=== PATIENT | male | born 1960 | race Caucasian/White ===

== ENCOUNTER → 2021-08-30 | Outpatient (CLI) | payer MEDICARE, OTHER, SELFPAY ==
--- NOTE | 2021-08-30 06:56 | MRI_ITS ---
STUDY: MRI CERVICAL SPINE WITHOUT CONTRAST REASON FOR EXAM: Male, 61 years old. neck pain right cervical radiculopathy -- TECHNIQUE: Standardized fat and water weighted pulse sequences were obtained in the sagittal and axial planes. COMPARISON: None FINDINGS: Normal foramen magnum and brainstem-cervical cord junction. Normal craniovertebral junction. Normal anterior atlantoaxial articulation. Normal odontoid process. Normal cervical lordosis. Normal vertebral bodies and posterior osseous elements. C2-3: Normal endplates. Normal disc height, signal and morphology. Normal central canal and intervertebral neural foramina. C3-4: Normal endplates. Normal disc height, signal and morphology. Normal central canal and intervertebral neural foramina. C4-5: Moderate broad disc osteophyte complex produces moderate spinal stenosis with abutment of the central spinal cord and mild bilateral neural foraminal stenosis. C5-6: Moderate bilateral disc osteophyte complex produces moderate spinal stenosis with effacement of the right hemicord and mild bilateral neural foraminal stenosis. C6-7: Moderate broad disc osteophyte complex bases moderate spinal stenosis with abutment of the central spinal cord and moderate bilateral neural foraminal stenosis. C7-T1: Normal endplates. Normal disc height, signal and morphology. Normal central canal and intervertebral neural foramina. Normal cervical cord. Normal visualized soft tissue structures. MRI/Spine Cervical (Routine) IMPRESSION: Multilevel degenerative changes, as described above. Electronically Signed: Zach Love MD at 17:29 EDT ,
--- NOTE | 2021-08-30 06:59 | RAD_ITS ---
STUDY: X-RAY - ORBITS REASON FOR EXAM: Male, 61 years old. Hx of metal removed from right eye in 1982 TECHNIQUE: 2 AP views view(s) of the orbits were obtained. COMPARISON: None. FINDINGS: Normal bilateral orbits without a metallic orbital foreign body. Normal visualized facial bones. Normal paranasal sinuses. The soft tissue structures are unremarkable. RAD/Orbits for Foreign Body IMPRESSION: No visualized radiopaque foreign bodies overlying the orbits. The study is limited by the visualized metallic dental amalgam. Electronically Signed: Krystle Coulter MD at 7:42 EDT Reading Location ID and State: [facility] / [place] Tel , Service support ,
== END | disposition home or self-care (01) ==
PROVIDERS: PCP General Practice; Referring Provider Psychiatry & Neurology Neurology; Visit Provider Psychiatry & Neurology Neurology
DX: M54.12 Radiculopathy, cervical region (principal); M54.2 Cervicalgia
CPT/HCPCS: 70030; 72141

== ENCOUNTER → 2022-02-05 | Outpatient (CLI) | payer MEDICARE, OTHER, SELFPAY ==
--- NOTE | 2022-02-05 16:10 | NEURO ---
NCS and/or EMG Patient Report Ordering Doctor: Tom Cantu DATE OF SERVICE: 02/05/22 Adrian presents for electrodiagnostic testing of the upper limbs. He reports neck pain with intermittent radiation into the upper limbs. He has numbness and tingling in the right hand. Electrodiagnostic findings: Median motor nerve demonstrates normal distal latency, amplitude and conduction velocity bilaterally. Normal right ulnar motor response, including conduction across the elbow. Normal left ulnar motor response, including conduction across the elbow. Sensory responses are within normal limits. On needle EMG, 1+ fibrillations noted in the right pronator teres, right triceps and right lower cervical paraspinals. Motor unit action potentials are of normal amplitude and duration without polyphasic activity. Electrodiagnostic impression: This is an abnormal study in the upper limbs. 1. Electrodiagnostic findings demonstrate acute right-sided C7 radiculopathy. 2. No electrodiagnostic evidence is noted for peripheral neuropathy, including carpal tunnel or cubital tunnel syndrome.
== END | disposition home or self-care (01) ==
LOC: PSN 14:31
PROVIDERS: PCP General Practice; Referring Provider Psychiatry & Neurology Neurology; Visit Provider Psychiatry & Neurology Neurology
DX: M54.12 Radiculopathy, cervical region (principal); G56.23 Lesion of ulnar nerve, bilateral upper limbs
CPT/HCPCS: 95886; 95913

== ENCOUNTER → 2022-07-30 | Outpatient (CLI) | payer MEDICARE, OTHER, SELFPAY ==
[2022-07-30 11:03] LABS: Vitamin B12 652 pg/mL (211-911)
[2022-07-30 11:47] LABS: Hemoglobin A1c 5.9 % (3.8-5.6)
[2022-08-01 22:06] LABS: Free Kappa Light Chains 24.2 mg/L (3.3-19.4); Vitamin B1, Thiamine 116.3 nmol/L (66.5-200.0)
== END | disposition home or self-care (01) ==
PROVIDERS: PCP General Practice; Referring Provider Psychiatry & Neurology Neurology; Visit Provider Psychiatry & Neurology Neurology
DX: G62.9 Polyneuropathy, unspecified (principal); R73.9 Hyperglycemia, unspecified
CPT/HCPCS: 36415; 82607; 82746; 83036; 83883; 84425

== ENCOUNTER → 2022-10-21 | Outpatient (CLI) | payer MEDICARE, OTHER, SELFPAY ==
--- NOTE | 2022-10-21 07:15 | MRI_ITS ---
STUDY: MRI CERVICAL SPINE WITHOUT CONTRAST REASON FOR EXAM: Male, 62 years old. SPONDYLOSIS, C/O BILATERAL ARM PAIN TECHNIQUE: Standardized fat and water weighted pulse sequences were obtained in the sagittal and axial planes. COMPARISON: MRI of the cervical spine dated August 30, 2021 FINDINGS: Normal foramen magnum and brainstem-cervical cord junction. Normal craniovertebral junction. Normal anterior atlantoaxial articulation. Normal odontoid process. There is straightening of the normal cervical lordosis. Normal vertebral bodies and posterior osseous elements. C2-3: Normal endplates. Diffuse disc desiccation. Normal disc height and morphology. Normal central canal and intervertebral neural foramina. C3-4: Normal endplates. Diffuse disc desiccation with minimal posterior disc space narrowing and annular bulging. Normal central canal and right neural foramen. Mild to moderate left foraminal stenosis with nerve root impingement due to uncovertebral facet joint hypertrophy. C4-5: Normal endplates. Diffuse disc desiccation with mild to moderate disc space narrowing and diffuse disc bulging contributing to mild central canal stenosis with slight mass effect on anterior aspect of the cord. Moderate left foraminal stenosis with nerve root compression due to combined uncovertebral and facet joint hypertrophy. Normal right neural foramen. C5-6: Normal endplates. Diffuse disc desiccation with mild to moderate disc space narrowing and diffuse disc bulging eccentric to the right, with a superimposed right paracentral disc protrusion causing compression right anterior aspect of the cord and contributing to mild to moderate central canal stenosis. Severe left foraminal stenosis with nerve root compression due to uncovertebral hypertrophy. Normal right neural foramen. C6-7: Moderate disc space narrowing with diffuse disc desiccation and diffuse disc bulging causing compression across the anterior aspect of the cord and moderate central canal stenosis. Moderate to severe bilateral foraminal stenosis with nerve root compression secondary to uncovertebral hypertrophy. C7-T1: Normal endplates. Normal disc height, signal and morphology. Normal central canal and intervertebral neural foramina. Normal cervical cord. There is no demonstrated cervical cord syrinx cavity. Normal visualized soft tissue structures. MRI/Spine Cervical (Routine) IMPRESSION: 1. Multilevel degenerative changes, as described above. No significant interval change. 2. Mild to moderate central canal stenosis with compression on anterior aspect of the cord from C4-C5 down to C6-C7 3. Moderate to severe foraminal stenosis with nerve root compression as described above from C4-C5 to C6-C7. Electronically Signed: Rojas Larkin MD at 10:11 EDT ,
== END | disposition home or self-care (01) ==
LOC: MRI 07:10
PROVIDERS: PCP General Practice; Referring Provider Nurse Practitioner Acute Care; Visit Provider Nurse Practitioner Acute Care
DX: M47.812 Spondylosis without myelopathy or radiculopathy, cervical region (principal); M50.30 Other cervical disc degeneration, unspecified cervical region; M48.02 Spinal stenosis, cervical region
CPT/HCPCS: 72141

== ENCOUNTER 2022-12-08 20:04 | Emergency (ER) | payer MEDICARE, OTHER, SELFPAY ==
[2022-12-08 20:06] VITALS: BP 130/96; PULSE 111; RESP 18; TEMP 37.3; O2SAT 96; BMI 28.6
[2022-12-08 20:09] VITALS: BP 130/96; PULSE 111; RESP 18; TEMP 37.3; O2SAT 96
--- NOTE | 2022-12-08 20:20 | EDS_ITS ---
HPI History of Present Illness Chief Complaint: Fever Narrative Narrative: 62-year-old male had cervical fusion with anterior approach by Dr. Barry at the [facility] 1 week ago. He presents with fever, chills, body ache, rhinorrhea nasal congestion, and cough since yesterday. He states yesterday he started having fever and took Tylenol and used cold pack to bring his fever down. However, when he awoke this morning, he started having other upper respiratory infection type symptoms. Has had a cough, nasal congestion and runny nose, and multiple myalgias and arthralgias. His fever returned as well. He complains of urinary frequency as well. He is not diabetic. He presents because of upper respiratory infection type symptoms that he has had since yesterday. He denies any increased neck pain or drainage from his wound. No redness. [facility] Medical History Arthritis Bradycardia Cardiac arrhythmia, unspecified Cervicalgia Chronic bronchitis Chronic low back pain Coccydynia GERD (gastroesophageal reflux disease) History of posttraumatic stress disorder (PTSD) Hyperlipidemia, unspecified Insomnia, unspecified Irregular heart beats Irritable bowel syndrome (IBS) Migraines Neuropathy Other psychoactive substance abuse, in remission Palpitations Pneumonia Restless legs syndrome Shortness of breath Tinea versicolor Urticaria, unspecified Home Medications sertraline 100 mg tablet (Zoloft) 200 mg PO DAILY 08/19/21 [History Last Taken Unknown] zolpidem 10 mg tablet (Ambien) 10 mg PO QHS PRN sleep 08/19/21 [History Last Taken Unknown] cholecalciferol (vitamin D3) 50 mcg (2,000 unit) capsule 50 mcg PO DAILY #30 caps 04/01/22 [Rx Last Taken Unknown] omeprazole 20 mg capsule,delayed release 20 mg PO DAILY #30 caps 07/30/22 [Rx Last Taken Unknown] gabapentin 300 mg capsule 300 mg PO BID 12/08/22 [History Last Taken Unknown] oxycodone 5 mg tablet 5 mg PO Q6H PRN PRN pain 12/08/22 [History Last Taken Unknown] Allergy/AdvReac Type Severity Reaction Status Date / Time bupropion [From Wellbutrin] Allergy Severe Anaphylaxis Verified 12/08/22 20:13 Family History Mother Cardiac disorder Diabetes Father Malignant neoplasm of prostate Surgical History History of elbow surgery History of foot surgery History of knee surgery History of lobectomy of lung History of shoulder surgery History of tonsillectomy Social History Smoking Status: Former smoker Tobacco: How many years used: 30 second hand exposure: Yes details: occasionally substance use type: former substance user and painkillers what type of physical activity do you participate in: none and other details: 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 HEENT: No sore throat. No neck pain. No loss of vision. No rhinorrhea. Appropriate neck pain status post surgery. Cardiovascular: No chest pain. No palpitations. No pedal edema. Respiratory: Positive cough, no shortness of breath. Abdominal: No abdominal pain. No nausea. No vomiting. Genitourinary: No dysuria. No hematuria. Urinary frequency. Musculoskeletal: Multiple arthralgias and myalgias. Neurologic: No headaches. No dizziness. No lightheadedness. Skin: No rash. No change in color. Psychiatric: No depression. No anxiety. EXAM Physical Exam Narrative Exam Narrative: Afebrile. Vital signs noted. Nontoxic-appearing. HEENT: Normocephalic. Atraumatic. PERRL, EOMI. Neck soft and supple. No point tenderness or step off. Positive soft neck collar. Cardiovascular: Positive tachycardia no murmurs, rubs, or gallops appreciated. Respiratory: No tachypnea. Lungs clear to auscultation bilaterally. Gastrointestinal: Abdomen soft, nontender, with normoactive bowel sounds. No rebound or guarding. Neurological: Awake. Alert. Nonfocal, nonlateralizing. Skin: No rash. Normal color. No pallor. Incision on anterior neck closed with Steri-Strips, clean, dry, and intact without erythema or fluctuance. Musculoskeletal: No pedal edema. Full range of motion extremities. Const Vital Signs: 12/08/22 20:06 12/08/22 20:09 12/08/22 20:37 Temperature 99.1 F 99.1 F Temperature Source Temporal Temporal Pulse Rate 111 H 111 H Respiratory Rate 18 18 Respiratory Effort Normal Non-Labored Respiratory Pattern Normal Blood Pressure 130/96 H 130/96 H Blood Pressure Mean 107 107 Pulse Ox 96 96 Oxygen Delivery Method Room Air Room Air MDM MDM MDM Narrative Medical decision making narrative: Given the patient's fever and upper respiratory infection type symptoms, concern would be for COVID and influenza. Also in the differential diagnosis is bronchitis versus pneumonia. He was a former smoker and quit smoking in April of this year. He may have underlying COPD as well. Given the urinary frequency concern would be for infection causing his fever as well. I have low suspicion for wound infection or abscess of the neck as he has not had increased pain. I reviewed his laboratory work and he has normal white count of 7.9, platelet count slightly low at 124 which I think is nonspecific, hemoglobin normal at 16.3, sodium slightly low 134 with potassium 3.9. Glucose is elevated at 144 but he has a normal anion gap of 5, I have low concern for diabetic ketoacidosis, as he is not diabetic. I do not feel that the source of his reported fever is from his neck surgery, and I do not feel that CT of the neck is indicated. His respiratory swabs were reviewed and he is negative for RSV and influenza but positive for COVID. As his symptoms are similar to COVID symptoms, treatment be symptomatic. I feel he be discharged safely home with follow-up. He states he had COVID a few years ago as well. He is not hypoxic with his pulse ox 96% on room air. He will be discharged to follow-up. I do not feel that Decadron is indicated. I also do not feel that he requires observation at this time. Return instructions were reviewed. Disposition is discharged home in stable condition. History & Record Review Discussion w/independent historian: Patient and Family Additional record(s) reviewed:: Prior ED visit Lab Data Attestation: I reviewed the patient's lab results. Labs: Laboratory Results - last 24 hr 12/08/22 20:32 WBC 7.9 RBC 5.33 Hgb 16.3 Hct 48.0 MCV 90.1 MCH 30.6 MCHC 34.0 RDW Std Deviation 40.8 RDW Coeff of Anaid 12.5 Plt Count 124 L MPV 9.9 Immature Gran % (Auto) 0.500 Neut % (Auto) 74.5 H Lymph % (Auto) 9.7 L Chase % (Auto) 14.2 H Eos % (Auto) 0.6 Baso % (Auto) 0.5 Absolute Neuts (auto) 5.9 Absolute Lymphs (auto) 0.77 L Nucleated RBC % 0 Sodium 134 L Potassium 3.9 Chloride 102 Carbon Dioxide 27.0 Anion Gap 5 BUN 15 Creatinine 1.05 Estim Creat Clear Calc 82.12 Est GFR (MDRD) Af Amer 92 Est GFR (MDRD) Non-Af 76 BUN/Creatinine Ratio 14.3 Glucose 144 H Calcium 9.2 Radiography Diagnostic Testing: Clinical Impression(s) from Imaging Studies Chest X-Ray 12/08/22 20:50 IMPRESSION: Trace bilateral mid lower lung atelectasis versus scarring. Otherwise no acute cardiopulmonary disease. Electronically Signed: Ariana Robb MD at 21:23 EDT Reading Location ID and State: [address] [place] [address] , Service support , Discharge Plan Triage Chief Complaint: Fever ED Provider: Hosea Hamilton Dx/Rx/DC Orders Clinical Impression: COVID, Status post cervical spinal fusion Instructions: Coronavirus Disease 2019 (COVID-19): Caring for Yourself or Others Prescriptions: No Action zolpidem [Ambien] 10 mg tablet 10 mg PO QHS PRN (Reason: sleep) sertraline [Zoloft] 100 mg tablet 200 mg PO DAILY cholecalciferol (vitamin D3) 50 mcg (2,000 unit) capsule 50 mcg PO DAILY Qty: 30 0RF omeprazole 20 mg capsule,delayed release(DR/EC) 20 mg PO DAILY Qty: 30 5RF oxycodone 5 mg tablet 5 mg PO Q6H PRN PRN (Reason: pain) Patient Comments: TAKE 1 TABLET BY MOUTH EVERY 6 HOURS NEEDED FOR PAIN FOR 7 DAYS gabapentin 300 mg capsule 300 mg PO BID Patient Comments: TAKE 1 CAPSULE BY MOUTH TWICE DAILY for up to 30 days Primary Care Provider: Anabelle Hamilton Referrals: Anabelle Hamilton MD [Primary Care Provider] - Activity Restrictions/Additional Instructions: Tylenol as needed for fever and pain. Drink fluids. Follow-up with your primary care provider. Also follow-up with your spine surgeon as scheduled on the . Disposition Disposition: Home, Self Care
[2022-12-08] MEDS: 0.9% Normal Saline 1,000 ML 1000 ML IV (20:38)
[2022-12-08 20:48] LABS: Absolute Lymphocyte Count 0.77 X10^3/uL (0.83-4.51); Absolute Neutrophil Count 5.9 X10^3/uL (2.0-7.7); Basophil# 0.04 X10^3/uL; Basophil% 0.5 % (0-1); Eosinophil# 0.05 X10^3/uL; Eosinophils% 0.6 % (0-5); Hemoglobin 16.3 g/dL (13.0-16.5); Lymphocyte # 0.77 X10^3/ul (0.83-4.51); Lymphocyte % 9.7 % (19-41); Mean Corpuscular Hgb 30.6 pg (27.0-32.0); Mean Corpuscular Volume 90.1 fL (80-94); Mean Platelet Vol. 9.9 fl (6.2-12.0); Monocyte# 1.12 X10^3/uL; Monocyte% 14.2 % (0-10); NRBC Flagged by Analyzer 0 % (0-5); Neutrophil # 5.89 X10^3/uL (2.7-7.7); Neutrophil % 74.5 % (47-70); Platelet Count 124 K/mm3 (150-450); RBC Distribution Width CV 12.5 % (11.6-14.6); RBC Distribution Width SD 40.8 fl (35.1-43.9); Red Blood Count 5.33 M/mm3 (4.6-6.2); White Blood Count 7.9 K/mm3 (4.4-11.0)
--- NOTE | 2022-12-08 20:50 | RAD_ITS ---
STUDY: X-RAY CHEST REASON FOR EXAM: Male, 62 years old. Cough TECHNIQUE: Single AP portable view of the chest. COMPARISON: None. FINDINGS: Minimal bilateral mid lower lung linear scarring versus atelectasis, otherwise lung yanes are clear. There is no demonstrated pleural abnormality. Normal size heart. Normal mediastinum and orly. Normal visualized pulmonary arteries. Normal visualized aortic arch and descending thoracic aorta. There are diffuse degenerative changes of the visualized thoracic spine. Status post anterior fusion of the lower cervical spine. Normal visualized ribs, clavicles, and shoulders. There is no demonstrated abnormality of the visualized soft tissue structures of the upper abdomen. RAD/Chest 1 View (Portable) IMPRESSION: Trace bilateral mid lower lung atelectasis versus scarring. Otherwise no acute cardiopulmonary disease. Electronically Signed: Ariana Robb MD at 21:23 EDT ,
[2022-12-08 21:07] LABS: Anion Gap 5 (5-15); BUN 15 mg/dL (7-18); BUN/Creat Ratio 14.3 RATIO (10-20); Calcium,Total 9.2 mg/dL (8.5-10.1); Chloride 102 mmol/L (98-107); Creatinine, Serum 1.05 mg/dL (0.70-1.30); EST Glomerular Filtration Rate 76 mL/min (>60); Est Glom Filt Rate - Afr Amer 92 mL/min (>60); Estimated Creatinine Clearance 82.12 ml/min; Glucose 144 mg/dL (74-106); Potassium 3.9 mmol/L (3.5-5.1); Sodium Level 134 mmol/L (136-145)
[2022-12-08 21:53] LABS: Bacteria 0 SEEN /hpf (None Seen); Mucous, Urine 0 SEEN /hpf (<or=2+); Red Blood Cells-Urine 0 SEEN /hpf (0-5); Squamous Epithelial Cells - UA 0 SEEN /hpf (0-5); White Blood Cells 0 SEEN /hpf (0-5)
[2022-12-08 22:02] LABS: Color, Urine Yellow (Yellow); Glucose, Dipstick Normal (Normal); Ketone-Dipstick Negative (Negative); Leukocyte Esterase-Dipstick Negative /ul (Negative); Nitrite-Dipstick Negative (Negative); Occult Blood-Urine Negative /ul (Negative); Protein-Dipstick Negative (Negative); Specific Gravity, Urine 1.015 (1.002-1.030); Urine Bilirubin Dipstick Negative (Negative); Urine Clarity Clear (Clear); Urine Urobilinogen Normal (Normal)
== END 2022-12-08 22:34 | disposition home or self-care (01) ==
PROVIDERS: Emergency Provider Emergency Medicine; PCP General Practice; Visit Provider Emergency Medicine
DX: U07.1 COVID-19 (principal); G89.29 Other chronic pain; Z87.891 Personal history of nicotine dependence; Z79.899 Other long term (current) drug therapy; Z98.1 Arthrodesis status
CPT/HCPCS: 71045; 80048; 81001; 85025; 87428; 87807; 96360; 96361; 99284; J7030; A4216

== ENCOUNTER 2023-03-26 13:30 | Outpatient (RCR) | payer MEDICARE, OTHER, SELFPAY ==
--- NOTE | 2022-12-23 12:03 | HP.PTEVAL ---
Patient's Visit Information Visit Information Visit Information: NAJMA WANG is a 62 year old M referred to Physical Therapy by JERAD TIPTON with a diagnosis of anterior instrumental fusion C4-C7. DOS: 11/11/22. Date of Evaluation: 12/23/22 Physical Therapist: Tonny Headley DPT Visit Plan Frequency: 2x /Week Duration: 6 Weeks Plan: Start with cervical isometrics. Able to wean from brace. Manual to L UT and L levator scapulae region to reduce muscle tension. Start ROM progression at week 3 (week of Jan 05). Subjective Subjective: Pt. is here today for his initial evaluation with diagnosis of cervical myelopathy with subsequent surgery C4-C5, C5-C6, C6-C7 discetomy/decompression and anterior instrumental fusion C4-C7. DOS: 11/11/22. Okay to start isometrics and begin advancing ROM after 3 weeks and wean from brace as tolerated. Pt. reports sleeping well, he uses a sleep aide but has for some time. Pt. was previously having issues down both UEs. Pt. is doing much better with his pain. Pt. is hopeful to get back to golfing and riding his motor cycle, but is aware that this will take some time. Pain Cervical spine: Pain Intensity (Out of 10): 3 Objective Objective: POSTURE: Pt. has okay posture, slight FH, but minimal. Guarded posture noted. PALPATION: pt. has well healing L sided incision. No signs of infection. Pt. has tenderness along B erector spinae, L sided levator scap and UT. NEURO: pt. has normal DTR and normal sensation in BUEs. ROM: CERVICAL SPINE: rotation max/mod loss, SB max loss bilat, flxion mod loss, ext mod/max loss. No over pressure, pt. educated to only move what is comfortable. Pt. has full B shoulder ROM without increase in symptoms. MMT: PT. has no signs of myotomal weakness in either UE. Pt. has 85# environmental compliance officer on L and 98# on R side. Balance/Special Test Scores Oswestry Neck Score: 20 Goals Goal 1:: LTG: Pt. to be I with HEP. Goal Time Frame: 4-6 Weeks Goal 2:: LTG: Pt. to have increased cervical spine ROM to with in normal limits without increase in symptoms. Goal Time Frame: 4-6 Weeks Goal 3:: LTG: pt. to complete all daily activities without increase in cervical spine symptoms. Goal Time Frame: 6-8 Weeks Goal 4:: LTG: Pt. to be educated in prophalaxis activities including proper body mechanics. Goal Time Frame: 6-8 Weeks Rehabilitation Potential Physical Therapy Diagnosis: Pt. has signs and symptoms consistent with anterior instrumental fusion C4-C7. DOS: 11/11/22. Pt. has subsequent hypomobility, weakness, increased pain and difficulty with ADLs. Pt. would benefit from PT to address the above limitations progressing shanice to all recreational and home activities without issues. Rehabilitation Potential: Excellent Anticipated Interventions Patient/Client Instruction: Educate patient on: Condition, Plan of Care, Risk Factors and Benefits of Fitness Program For the Purpose of:: To improve self management, To prevent re-injury, To improve ability to perform tasks related to life management and To improve tolerance to ADL's Therapeutic Exercise to Include: Strength training, Power training, Body mechanics, Postural training, Flexibilty training, Passive ROM, Active ROM and Scapular Strength/Stabilization For the Purpose of:: To decrease pain, To increase ROM, To improve nutrient delivery to tissue, To increase oxygenation perfusion, To improve muscle performance and motor function, To improve ability to perform ADL's, To increase tolerance to activity/condition/position and To increase flexibility/ROM Manual Therapy Techniques to Include: Mobilization and Soft tissue mobilization For the Purpose of:: To decrease pain, To decrease swelling/inflammation and To increase ROM Cryotherapy (ice pack, ice massage): Yes For the Purpose of:: To decrease pain, To decrease swelling/inflammation and To increase ROM Text: Thank you for the opportunity to evaluate your patient. For Medicare and Medicare HMO plans, please review the plan of care and approve it. It will need to be FAXED BACK to us at [phone] for Medicare purposes. For Medicare only, by signing this I certify the plan of care. Please let me know if there are questions or concerns regarding this plan of care. Physician Signature: Date:
--- NOTE | 2023-01-23 09:13 | HP.PTREVAL ---
Re-Evaluation Intro: JERAD TIPTON, It has been my pleasure to treat NAJMA WANG over the last 8 visits for anterior instrumental fusion C4-C7. DOS: 11/11/22. Please see the progress note below for an update on the physical therapy plan of care! Subjective Subjective: Pt. reports overall doing well. He is still having issues with his ROM, but is otherwise doing well. No major pain. Objective Objective/Function: ROM: CERVICAL SPINE: flexion mod loss extension min/mod loss, rotation min loss bilat, SB mod loss bilat. SHOULDER: Pt. has close to full shoulder ROM without increase in symptoms. MMT: Pt. has 4+/5 B shoulder strength throughout. Pt. has 5/5 cervical iso without increase in symptoms. Sleeping continues to be his most sore positioning. I talked with him about pillow placement and use of towels to assist. Pt. to trial. He does report some imbalance with initial getting up in the mornings, but reports this quickly goes away. Plan Plan Plan: Recerting x2 per week for 4 weeks to work on slowly increasing ROM and postural stability exercises. Balance/Gait/Functional tests Balance/Special Test Scores Oswestry Neck Score: 12 Goals Goals Goal 1:: LTG: Pt. to be I with HEP. Goal Time Frame: 4-6 Weeks Goal Progress: Progressing Goal 2:: LTG: Pt. to have increased cervical spine ROM to with in normal limits without increase in symptoms. Goal Time Frame: 4-6 Weeks Goal Progress: Progressing Goal 3:: LTG: pt. to complete all daily activities without increase in cervical spine symptoms. Goal Time Frame: 6-8 Weeks Goal Progress: Progressing Goal 4:: LTG: Pt. to be educated in prophalaxis activities including proper body mechanics. Goal Time Frame: 6-8 Weeks Goal Progress: Progressing Anticipated Interventions Anticipated Interventions Patient/Client Instruction: Educate patient on: Condition, Plan of Care, Risk Factors and Benefits of Fitness Program For the Purpose of:: To improve self management, To prevent re-injury, To improve ability to perform tasks related to life management and To improve tolerance to ADL's Therapeutic Exercise to Include: Strength training, Power training, Body mechanics, Postural training, Flexibilty training, Passive ROM, Active ROM and Scapular Strength/Stabilization For the Purpose of:: To decrease pain, To increase ROM, To improve nutrient delivery to tissue, To increase oxygenation perfusion, To improve muscle performance and motor function, To improve ability to perform ADL's, To increase tolerance to activity/condition/position and To increase flexibility/ROM Manual Therapy Techniques to Include: Mobilization and Soft tissue mobilization For the Purpose of:: To decrease pain, To decrease swelling/inflammation and To increase ROM Cryotherapy (ice pack, ice massage): Yes For the Purpose of:: To decrease pain, To decrease swelling/inflammation and To increase ROM Re-Evaluation Ending Re-evaluation ending: Please do not hesitate to contact me at [phone] by phone or if you have questions or concerns regarding this new plan of care! Sincerely, VENKATA CarterT
== END 2023-03-26 19:00 | disposition home or self-care (01) ==
LOC: PT 13:30
PROVIDERS: PCP General Practice
DX: G95.9 Disease of spinal cord, unspecified (principal)
CPT/HCPCS: 97110; 97140; 97161; 97164

== ENCOUNTER 2023-06-08 05:57 | Day surgery (SDC) | payer OTHER, SELFPAY ==
--- OUTSIDE RECORDS SUMMARY | 2023-06-08 06:02 | XMS RPT_ITS | CCD ---
Author Name Unknown Address [address] [place] [address] Organization [facility] Care Team Providers Care Stitcher Tape Controlled Machine Name Role Phone RONNIE RAMIREZ Attending Unavailable AlfonsoAnabelle Unavailable Unavailable Anabelle Hamilton Unavailable Unavailable Unknown, Referring Provider Unavailable Unav ailable Alfonso, Anabelle Mak Unavailable Unavailable Sherri Joyce Unavailable Unavailable Liza Armando Unavailable Unavailable Anabelle Hamilton Unavailable Unavailable Unavailable Unavailable Unavailable Anabelle Hamilton MD Primary Care Provider [phone] Allergies Allergy Classification Reported Allergen(s) Allergy Type Date of Onset Reaction(s) Facility (1 source) buPROPion; Translations: [BUPROPION] Drug Allergy 04-28-2018 [facility] Repository (1 source) drug allergy [facility] Work Phone: (1 source) drug allergy [facility] Work Phone: (20 sources) buPROPion; Translations: [Wellbutrin] Drug Allergy [facility] Work Phone: (1 source) buPROPion Drug Allergy 11-26-2022 Unknown [facility] Medications Current Medications Medication Drug Class(es) Dates Sig (Normalized) Sig (Original) atorvastatin 40 mg oral tablet (8 sources) HMG-CoA Reductase Inhibitor Start: 03-19-2020 take 1 tablet by mouth once daily atorvastatin (Lipitor) 40 mg tablet Take 1 tablet (40 mg) by mouth once daily. 0 03/19/2020 Active Completed/Discontinued Medications Medication Drug Class(es) Dates Sig (Normalized) Sig (Original) betamethasone 0.5 mg/ml / clotrimazole 10 mg/ml topical cream (3 sources) Azole Antifungal, Corticosteroid Start: 09-02-2018 Clotrimazole-Beta methasone 1-0.05 % External Cream APPLY SPARINGLY TO AFFECTED AREA(S) 3 TIMES A DAY Quantity: 1 Refills: 0 Anabelle Hamilton MD Start : 02-Sep-2018 Active 45 GM Tube diclofenac sodium 75 mg / miSOPROStol 0.2 mg delayed release oral tablet (8 sources) Nonsteroidal Anti-inflammatory Drug, Prostaglandin E1 Analog Start: 03-16-2020 take 1 tablet by mouth twice daily Diclofenac-miSOPR OStol 75-0.2 MG Oral Tablet Delayed Release Take 1 tablet twice daily Quantity: 60 Refills: 0 Ordered: 16-Mar-2020 Sherri Joyce MD Start : 16-Mar-2020 Active ketoconazole 20 mg/ml medicated shampoo (6 sources) Azole Antifungal Start: 2021 Ketoconazole 2 % External Shampoo apply to affected area for 10-15 min then shower off- do this for 1-2 weeks and then as needed Quantity: 1 Refills: 0 Ordered: 04-Feb-2021 Anabelle Hamilton MD Start : 04-Feb-2021 Active Medical Marijuana (Not [facility] Prescribed) DO NOT FILL (8 sources) Start: 03-16-2020 Medical Marijuana (Not [facility] Prescribed) DO NOT FILL Quantity: 0 Refills: 0 Ordered: 16-Mar-2020 Sherri Joyce MD Start : 16-Mar-2020 Active DO NOT FILL OR RENEW. RECORDED ONLY. Problems Active Problems Problem Classification Problem Date Documented Da te Episodic/Chronic Allergic reactions (14 sources) Urticaria; Translations: [Urticaria, unspecified] Episodic Cardiac dysrhythmias (12 sources) Palpitations; Translations: [Palpitations] Episodic Disorders of lipid metabolism (8 sources) Hyperlipidemia; 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 and unspecified hyperlipidemia] Onset: 3 11-26-2022 Chronic Esophageal disorders (14 sources) Gastroesophageal reflux disease; Translations: [Esophageal reflux] Onset: 3 11-26-2022 Chronic Heart valve disorders (15 sources) Irregular heart beat; Translations: [Cardiac dysrhythmia, unspecified] Chronic Mycoses (6 sources) Pityriasis versicolor; Translations: [Pityriasis versicolor] Episodic Other gastrointestinal disorders (14 sources) Constipation; Translations: [Constipation, unspecified] Episodic Other gastrointestinal disorders (14 sources) Personal history of other diseases of the digestive system; Translations: [History of gastroesophageal reflux disease] Episodic Other hereditary and degenerative nervous system conditions (14 sources) Restless legs; Translations: [Restless legs syndrome (RLS)] Chronic Other lower respiratory disease (6 sources) Dyspnea on exertion; Translations: [Shortness of breath] Episodic Other screening for suspected conditions (not mental disorders or infectious disease) (18 sources) Patient encounter status; Translations: [Screening for lipoid disorders] Episodic Other skin disorders (14 sources) Eruption; Translations: [Rash and other nonspecific skin eruption] Episodic Residual codes; unclassified (11 sources) Insomnia; Translations: [Insomnia, unspecified] Onset: 3 11-26-2022 Episodic Screening and history of mental health and substance abuse codes (11 sources) H/O: psychological trauma; Translations: [Personal history of other mental disorders] Episodic Spondylosis; intervertebral disc disorders; other back problems (20 sources) Other dorsalgia; Translations: [Backache] Onset: 9 11-27-2022 Episodic Substance-related disorders (8 sources) Drug abuse in remission; 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, mixed, or unspecified drug abuse, in remission] Chronic Past or Other Problems Problem Classification Problem Date Documented Da te Episodic/Chronic Residual codes; unclassified (3 sources) H/O: Disorder; Translations: [History of post traumatic stress disorder] Episodic Unclassified (13 sources) Patient encounter status; Translations: [Prostate cancer screening] Unclassified (3 sources) Screening status; Translations: [Screening cholesterol level] NEGATED: Highlighted row has not occurred!Residual codes; unclassified (20 sources) Disease Episodic Results Test Name Value Interpretation Reference Range Facil ity Vital Signs Date Time Vital Sign Value Performing Clinician Facility 11-27-2022 13:56-0400 Body mass index (BMI) [Ratio] 29.97 kg/m2 Anabelle Hamilton MD Work Phone: [facility] 11-27-2022 13:56-0400 Body temperature 97.81 [degF] Anabelle Hamilton MD Work Phone: [facility] 11-27-2022 13:56-0400 Body weight 100.25 kg Anabelle Hamilton MD Work Phone: [facility] 11-27-2022 13:56-0400 Diastolic blood pressure 82 mm[Hg] Anabelle Hamilton MD Work Phone: [facility] 11-27-2022 13:56-0400 Systolic blood pressure 124 mm[Hg] Anabelle Hamilton MD Work Phone: [facility] 06-06-2021 10:51-0500 Body mass index (BMI) [Ratio] 29.7 kg/m2 Anabelle Hamilton Work Phone: [facility] Work Phone: 06-06-2021 10:51-0500 Body surface area Derived from formula 2.21 m2 Anabelle Hamilton Work Phone: [facility] Work Phone: 06-06-2021 10:51-0500 Body temperature 97.4 [degF] Anabelle Hamilton Work Phone: [facility] Work Phone: 06-06-2021 10:51-0500 Body weight 99.34 kg Anabelle Hamilton Work Phone: [facility] Work Phone: 06-06-2021 10:51-0500 Diastolic blood pressure 80 mm[Hg] Anabelle Hamilton Work Phone: [facility] Work Phone: 06-06-2021 10:51-0500 Systolic blood pressure 124 mm[Hg] Anabelle Hamilton Work Phone: [facility] Work Phone: 2021 09:59-0400 Body height 182.88 cm Anabelle Hamilton Work Phone: [facility] Work Phone: 2021 09:59-0400 Body mass index (BMI) [Ratio] 29.16 kg/m2 Anabelle Hamilton Work Phone: [facility] Work Phone: 2021 09:59-0400 Body surface area Derived from formula 2.2 m2 Anabelle Hamilton Work Phone: [facility] Work Phone: 2021 09:59-0400 Body temperature 97.6 [degF] Anabelle Hamilton Work Phone: [facility] Work Phone: 2021 09:59-0400 Body weight 97.52 kg Anabelle Hamilton Work Phone: [facility] Work Phone: 2021 09:59-0400 Diastolic blood pressure 82 mm[Hg] Anabelle Hamilton Work Phone: [facility] Work Phone: 2021 09:59-0400 Systolic blood pressure 130 mm[Hg] Anabelle Hamilton Work Phone: [facility] Work Phone: 03-16-2020 14:38-0500 BMI (Body Mass Index) 28.39 kg/m2 [facility] Work Phone: 03-16-2020 14:38-0500 Body weight 94.94 kg [facility] Work Phone: 03-16-2020 14:38-0500 BP Diastolic 72 mm[Hg] [facility] Work Phone: 03-16-2020 14:38-0500 BP Systolic 116 mm[Hg] [facility] Work Phone: 03-16-2020 14:38-0500 BSA (Body Surface Area) 2.17 m2 [facility] Work Phone: 03-16-2020 14:38-0500 Height 182.88 cm [facility] Work Phone: 03-16-2020 14:38-0500 Pulse (Heart Rate) 64 /min [facility] Work Phone: Encounters Encounter Date Encounter Type Care Provider Facility Start: 11-27-2022 End: 11-27-2022 Office outpatient visit 25 minutes Anabelle Hamilton MD Work Phone: [facility] Procedures Date Procedure Procedure Detail Performing Clinician Start: 04-08-2021 Lipid 1996 panel - S dilia or Plasma Anabelle Hamilton MD Work Phone: Start: 03-19-2020 Comprehensive metabo lic 2000 panel Anabelle Hamilton Start: 03-19-2020 Lipid panel Anabelle Hamilton Start: 03-16-2020 Amphetamine Confirm, Urine Anabelle Hamilton Start: 03-16-2020 Barbiturate Confirm, Urine Anabelle Hamilton Start: 03-16-2020 Benzodiazepines Conf irm, Urine Anabelle Hamilton Start: 03-16-2020 Buprenorphine Confirm, U Anabelle Hamilton Start: 03-16-2020 Cannabinoid Confirm, Urine Anabelle Macedort Start: 03-16-2020 Cocaine Confirm, Urine Anabelle Macedort Start: 03-16-2020 Opiates, oxycodone/ oxymorphone confirm, urine Anabelle Hamilton Start: 03-16-2020 XR Spine Lumbar and Sacrum 4 views Anabelle Hamilton Start: 03-16-2020 Xray Cervical Spine Min 4 View Anabelle Hamilton Start: 03-16-2020 Xray Pelvis Complete Min 3 View Anabelle Hamilton Start: 08-11-2018 Comprehensive metabo lic 2000 panel Anabelle Hamilton Start: 08-11-2018 Lipid panel Anabelle Hamilton Start: 08-11-2018 PSA screening Anabelle Hamilton History of Elbow Surgery Anabelle Hamilton History of Foot Surgery Anabelle Hamilton History of Knee Surgery Anabelle Hamilton History of Lung Lobe ctomy Partial Anabelle Hamilton History of Shoulder Surgery Anabelle Hamilton Tonsillectomy Anabelle Macedo rt Plan of Treatment Date Care Activity Detail Author Start: 01-02-2027 DTaP/Tdap/Td Vaccine s (2 - Td or Tdap) DTaP/Tdap/Td Vaccines (2 - Td or Tdap) [facility] Start: 04-08-2026 Lipid panel Lipid Panel [facility] Start: 12-05-2022 Influenza vaccination Influenz a Vaccine (#1) [facility] Start: 09-24-2021 FUV, Provider: Anabelle Hamilton, Status: Pen, Time: 2:15 PM FUV, Provider: Anabelle Hamilton, Status: Pen, Time: 2:15 PM [facility] Work Phone: Start: 02-05-2012 Zoster Vaccines (1 o f 2) Zoster Vaccines (1 of 2) [facility] Start: 02-05-1980 Diabetes mellitus screening Diabetes Screening [facility] Start: 02-05-1980 Hepatitis C screening Hepatitis C Sc reening [facility] Start: 1961 MMR Vaccines (1 of 1 - Standard series) MMR Vaccines (1 of 1 - Standard series) [facility] Start: 1960 COVID-19 Vaccine (#1) COVID-19 Vacci ne (#1) [facility] Start: 1960 HIV screening HIV Screening [facility] Start: 1960 Medicare Annual Wellness Visit Medicare Annual Wellness Visit (AWV) [facility] Start: 1960 Screening for malignant neoplasm of colon [facility] Work Phone: NEGATED: Highlighted row has been ruled out! Planned Goals not documented [facility] Work Phone: Immunizations Immunization Date Immunization Notes Care Provider Narda downing 01-02-2017 influenza, injectabl e, quadrivalent, contains preservative Anabelle Hamilton Work Phone: [facility] 01-02-2017 pneumococcal polysaccharide vaccine, 23 valent Anabelle Hamilton Work Phone: [facility] 01-02-2017 tetanus toxoid, redu andrea diphtheria toxoid, and acellular pertussis vaccine, adsorbed Anabelle Hamilton Work Phone: [facility] 01-02-2017 influenza virus vacc ine, unspecified formulation Anabelle Hamilton MD Work Phone: [facility] Work Phone: Payers Date Payer Category Payer [employer] others) [employer] [id number] 2022-Present [address] [place] [address] [id number] 2018 Medicare MEDICARE MEDICAR E PART A AND B [id number] 2018-Present [address] [place] [address] [id number] Unknown Social History Date Type Detail Facility Start: 11-27-2022 Caffeine use Caffeine use [facility] Work Phone: Start: 11-27-2022 Tobacco smoking status NHIS Never smoked tobacco [facility] Start: 11-27-2022 Tobacco use and exposure Smokeless tobacco non-user [facility] Work Phone: Start: 11-27-2022 Alcohol intake Lifetime non-d tita (finding) [facility] Work Phone: Start: 11-27-2022 Tobacco use panel [facility] Work Phone: Start: 1960 Sex Assigned At Not on file [facility] Work Phone: NEGATED: Highlighted row - Current every day smoker [facility] Work Phone: NEGATED: Highlighted rowStart: NINF History of tobacco use Passive smoker [facility] Work Phone: Functional Status Date Assessment Result Facility NEGATED: Highlighted row Functional performance Functional status health issues are not documented Disease [facility] Work Phone: Mental Status Date Assessment Result Facility NEGATED: Highlighted row Cognitive function [Interpretation] Cognitive status health issues are not documented Disease [facility] Work Phone: History of Present illness Narrative 11-27-2022 Anabelle Hamilton MD - 11/27/2022 1:45 PM EDT Note Date & Type Note Facility 11-27-2022 History of Present illness Narrative Subjective Patient ID: Najma Ramirez is a 62 y.o. male who presents for No chief complaint on file.. HPI Has had 2 steroid injections and an ablation for cervical stenosis and now having anterior cervical discectomy fusion (Dr. Shai Barry) Goes to [place] for his medical care- cholesterol is followed there, pt did not tolerate statin medication, chol was ok when last checked Takes Zolpidem and sertraline Review of Systems General: no fever or night sweats, no change in weight Eyes: no vision disturbance ENT: no mouth lesions, no sore throat, and no dysphagia CV: no chest pain, no palpitations, no lower extremity edema Resp: no shortness of breath, no cough GI: no abdominal pain, no change in bowel habits : no urinary problems Skin; no rashes Neuro: no headaches, no difficulty walking Objective Visit Vitals BP 124/82 Temp 36.6 C (97.8 F) (Oral) Physical Exam Alert, well-appearing. HEENT: OP clear. Sclera white. Pupils equal and round. EACs and TMs clear. Neck: Supple. No palpable masses. Thyroid was not enlarged. CVS: RRR, no murmurs. No peripheral edema. Respiratory: Normal inspirations and expirations. Clear and equal breath sounds. GI: Soft, nontender, no masses or hepatosplenomegaly. Assessment/Plan Diagnoses and all orders for this visit: Pre-operative clearance Healthcare maintenance Clear for upcoming surgery Due for colonoscopy - plans on getting scheduled after surgery Anabelle Hamilton MD [facility] documented in this encounter [facility] Work Phone: Evaluation note Note Date & Type Note Facility documented in this encounter [facility] Work Phone: History of Present illness Narrative Note Date & Type Note Facility History of Present illness Narrative The patient is being seen for the subsequent annual wellness visit.Past Medical, Surgical and Family History: reviewed and updated in chart.Medications and Supplements: Medications and supplements, including calcium and vitamins reviewed and updated in chart.No, the patient is not using opioids.Patient Self Assessment of Health Status: good.Tobacco use: UserAlcohol use: Non-UserCurrent diet: well balanced diet.Depression/Suicide Screening: Patient has a current diagnosis of depression .During the past 2 weeks, the patient has not felt down, depressed or hopeless.During the past 2 weeks, the patient has not felt little interest or pleasure in doing things.Cognitive Impairment: No cognitive impairment observed.Bathing: performs independently.Dressing: performs independently.Walking: performs independently.Managing Finances: performs independently.Shopping: performs independently.Managing Medications: performs independently.Housework / Basic Home Maintenance: performs independently.Falls Risk Screening:. NAJMA has not fallen in the last 6 months.Home safety risk factors: none.Here for [facility] physical and blood work results. Discuss skin issues.Najma is a 61 year old male presenting for his complete physical exam.- He reports that he has started some kind of skin condition down both arms. Describes it a s very dry and itchy. He states that this has been going on for a while now.- No other specific complaints or concerns.- His last colonoscopy was 2014 or 2015.- [facility] Doing well on this.- He states that atorvastatin has caused him to have muscle and joint aches so he has not been taking it daily. He reports a h/o hyperlipidemia.- He admits to drinking a lot of soda.- Smokes a half a pack of cigarettes a day on average.- uses medical marijuana.- He gets exercise daily at the gym.- Reports that his vision is getting worse. Last eye exam was last year.- He states that when he goes from sitting to standing, he experiences a head dan to the point of vision going black.- Also has been experiencing a weaker stream when he urinates.- continues to take Ambien nightly. [facility] Work Phone: History of Present illness Narrative Note Date & Type Note Facility History of Present illness Narrative EP. Here for right sided pain and pain that goes across upper back across shoulders. 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 Here for right sided pain and pain that goes across upper back across shoulders. 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- this has been ongoing for the last week.- upper back still giving him a lot of issues- has taken Motrin 600 mg bid [facility] Work Phone: Summary Purpose Family History Grandparent Name Dates Details Family history of cardiac di sorder(V17.49, Z82.49) Status:Active Mother Name Dates Details Family history of diabetes m ellitus(V18.0, Z83.3) Status:Active Family history of cardiac di sorder(V17.49, Z82.49) Status:Active Father Name Dates Details Family history of malignant neoplasm of prostate(V16.42, Z80.42) Status:Active Grandparent Name Dates Details Family history of cardiac di sorder(V17.49, Z82.49) Status:Active Mother Name Dates Details Family history of cardiac di sorder(V17.49, Z82.49) Status:Active Family history of diabetes m ellitus(V18.0, Z83.3) Status:Active Father Name Dates Details Family history of malignant neoplasm of prostate(V16.42, Z80.42) Status:Active Grandparent Name Dates Details Family history of cardiac di sorder(V17.49, Z82.49) Status:Active Mother Name Dates Details Family history of diabetes m ellitus(V18.0, Z83.3) Status:Active Family history of cardiac di sorder(V17.49, Z82.49) Status:Active Father Name Dates Details Family history of malignant neoplasm of prostate(V16.42, Z80.42) Status:Active Grandparent Name Dates Details Family history of cardiac di sorder(V17.49, Z82.49) Status:Active Mother Name Dates Details Family history of diabetes m ellitus(V18.0, Z83.3) Status:Active Family history of cardiac di sorder(V17.49, Z82.49) Status:Active Father Name Dates Details Family history of malignant neoplasm of prostate(V16.42, Z80.42) Status:Active Grandparent Name Dates Details Family history of cardiac di sorder(V17.49, Z82.49) Status:Active Mother Name Dates Details Family history of diabetes m ellitus(V18.0, Z83.3) Status:Active Family history of cardiac di sorder(V17.49, Z82.49) Status:Active Father Name Dates Details Family history of malignant neoplasm of prostate(V16.42, Z80.42) Status:Active Grandparent Name Dates Details Family history of cardiac di sorder(V17.49, Z82.49) Status:Active Mother Name Dates Details Family history of diabetes m ellitus(V18.0, Z83.3) Status:Active Family history of cardiac di sorder(V17.49, Z82.49) Status:Active Father Name Dates Details Family history of malignant neoplasm of prostate(V16.42, Z80.42) Status:Active Sister Name Dates Details Family history of Healthy fe male Status:Active Grandparent Name Dates Details Family history of cardiac di sorder(V17.49, Z82.49) Status:Active Mother Name Dates Details Family history of diabetes m ellitus(V18.0, Z83.3) Status:Active Family history of cardiac di sorder(V17.49, Z82.49) Status:Active Father Name Dates Details Family history of malignant neoplasm of prostate(V16.42, Z80.42) Status:Active Sister Name Dates Details Family history of Healthy fe male Status:Active Grandparent Name Dates Details Family history of cardiac di sorder(V17.49, Z82.49) Status:Active Mother Name Dates Details Family history of cardiac di sorder(V17.49, Z82.49) Status:Active Family history of diabetes m ellitus(V18.0, Z83.3) Status:Active Father Name Dates Details Family history of malignant neoplasm of prostate(V16.42, Z80.42) Status:Active Unknown Family Member Name Dates Details Family history of diabetes m ellitus: Mother(V18.0, Z83.3) Status:Active Family history of cardiac di sorder: Mother, Grandparent(V17.49, Z82.49) Status:Active Family history of malignant neoplasm of prostate: Father(V16.42, Z80.42) Status:Active Healthy female: Sister Status:Active Unknown Family Member Name Dates Details Family history of diabetes m ellitus: Mother(V18.0, Z83.3) Status:Active Family history of cardiac di sorder: Mother, Grandparent(V17.49, Z82.49) Status:Active Family history of malignant neoplasm of prostate: Father(V16.42, Z80.42) Status:Active Healthy female: Sister Status:Active Unknown Family Member Name Dates Details Family history of malignant neoplasm of prostate: Father(V16.42, Z80.42) Status:Active Family history of cardiac di sorder: Mother, Grandparent(V17.49, Z82.49) Status:Active Family history of diabetes m ellitus: Mother(V18.0, Z83.3) Status:Active Healthy female: Sister Status:Active Unknown Family Member Name Dates Details Family history of diabetes m ellitus: Mother(V18.0, Z83.3) Status:Active Family history of cardiac di sorder: Mother, Grandparent(V17.49, Z82.49) Status:Active Family history of malignant neoplasm of prostate: Father(V16.42, Z80.42) Status:Active Healthy female: Sister Status:Active Unknown Family Member Name Dates Details Family history of diabetes m ellitus: Mother(V18.0, Z83.3) Status:Active Family history of cardiac di sorder: Mother, Grandparent(V17.49, Z82.49) Status:Active Family history of malignant neoplasm of prostate: Father(V16.42, Z80.42) Status:Active Healthy female: Sister Status:Active Unknown Family Member Name Dates Details Family history of diabetes m ellitus: Mother(V18.0, Z83.3) Status:Active Family history of cardiac di sorder: Mother, Grandparent(V17.49, Z82.49) Status:Active Family history of malignant neoplasm of prostate: Father(V16.42, Z80.42) Status:Active Healthy female: Sister Status:Active Advance Directives No Advanced Directives Records FoundNo Advanced Directives Records FoundNo Advanced Directives Records FoundNo Advanced Directives Records Found Additional Source Comments (unrecognized sect ion and content) No Status Records FoundNo Status Records FoundNo Status Records FoundNo Status Records Found INFORMATION SOURCE (unrecogn ized section and content) DATE CREATED AUTHOR AUTHOR'S ORGANIZ ATION 05/07/2018 [facility] DATE CREATED AUTHOR AUTHOR'S ORGANIZ ATION 06/10/2021 [facility] DATE CREATED AUTHOR AUTHOR'S ORGANIZ ATION 06/14/2021 [facility] Care Teams (unrecognized sec tion and content) FOR RECORDS PERTAINING TO PATIENTS WHO ARE OR HAVE BEEN ENROLLED IN A CHEMICAL DEPENDENCY/SUBSTANCEABUSE PROGRAM, SOME INFORMATION MAY BE OMITTED. This clinical summary was aggregated from multiple sources. Caution should be exercised in using it in the provision of clinical care. This summary normalizes information from multiple sources, and as a consequence, information in this document may materially change the coding, format and clinical context of patient data. In addition, data may be omitted in some cases. CLINICAL DECISIONS SHOULD BE BASED ON THE PRIMARY CLINICAL RECORDS. [facility] [employer] [facility]. provides no warranty or guarantee of the accuracy or completeness of information in this document.
[2023-06-08] MEDS: Lactated Ringers 1,000 ML 15 ML IV (06:26)
[2023-06-08 06:27] VITALS: BP 111/83; PULSE 51; RESP 16; TEMP 36.4; O2SAT 97; BMI 28.9
--- NOTE | 2023-06-08 07:01 | PCM.HP.BLA ---
History and Physical Date of Admission: 06/08/23 Date of Service: 05/18/23 MR#: [id number] Acct: [id number] Name: NAJMA WANG Rep #: [id number] : 1960 Provider: Dr. Rose Emanuel MD Age/Sex: 63/M Location: [facility] Status: Signed Intake Vital Signs 12/09/2319:06 05/18/2412:55 Height 6 ft 6 ft Weight: 217 lb BMI 29.4 BP 134/77 H Blood Pressure Location Rt brachial Position Sitting Respiration 18 Intake Visit Reasons: COLONOSCOPY SCREENING Chief Complaint: c-scope Judge Required: No Allergies bupropion [From Wellbutrin] Allergy (Severe, Verified 05/18/23 13:55) Anaphylaxis Medications sertraline 100 mg tablet (Zoloft) 200 mg PO DAILY 08/19/21 [History Confirmed 05/18/23] zolpidem 10 mg tablet (Ambien) 10 mg PO QHS PRN sleep 08/19/21 [History Confirmed 05/18/23] cholecalciferol (vitamin D3) 50 mcg (2,000 unit) capsule 50 mcg PO DAILY #30 caps 04/01/22 [Rx Confirmed 05/18/23] zinc gluconate 50 mg tablet 50 mg PO DAILY 05/18/23 [History Confirmed 05/18/23] PFSH Medical History Arthritis Bradycardia Cardiac arrhythmia, unspecified Cervicalgia Chronic bronchitis Chronic low back pain Coccydynia GERD (gastroesophageal reflux disease) History of posttraumatic stress disorder (PTSD) Hyperlipidemia, unspecified Insomnia, unspecified Irregular heart beats Irritable bowel syndrome (IBS) Migraines Neuropathy Other psychoactive substance abuse, in remission Palpitations Pneumonia Restless legs syndrome Shortness of breath Tinea versicolor Urticaria, unspecified Surgical History History of elbow surgery History of foot surgery History of knee surgery History of lobectomy of lung History of shoulder surgery History of tonsillectomy Family History Mother Cardiac disorder DiabetesFather Malignant neoplasm of prostate Social History Smoking Status: Former smoker Tobacco: How many years used: 30 second hand exposure: Yes details: occasionally substance use type: former substance user and painkillers what type of physical activity do you participate in: none and other details: 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 Patient's last colonoscopy was in 2015 or 19 patient did have a tubular adenoma per notes at that time do not have the actual colonoscopy records and pathology. Patient denies any family history of colon cancer. Patient has bowel movements daily denies any blood. Patient did have some issues with IBS and GERD but that was about 2 years ago. At that time patient was on omeprazole for about 10 years has been off of it for about 2 years. Patient states he did have an EGD probably in 2002 when he had a colonoscopy as well at that time. Patient did receive the [place] from the [place]; however patient did take the prep today thinking this was the actual colonoscopy. Patient is agreeable to get have our prep instead of the moviprep for the colonoscopy. ROS General General: No weight change, appetite, fatigue, colon cancer or breast cancer HEENT HEENT: No difficulty swallowing, eye injury, eye surgery, swollen glands or hoarseness Endo Endocrine: No thyroid disease, diabetes mellitus, thyroid cancer, Hair loss, heat intolerance or cold intolerance Skin Skin: No rash or changing moles Musc Musculoskeletal: No back problems, arthritis, rheumatoid arthritis, gout or joint pain Cardio Cardiovascular: No murmur, pacemaker, heart disease, atrial fibrillation, high blood pressure, heart attack, heart stent, palpitations, shortness of breat with exertion or chest pain Psych Psychiatric: No depression, anxiety or hearing voices Resp Respiratory: No shortness of breath, No sleep apnea, No cough, No COPD, No asthma, No emphysema and No wheezing Gastro Gastrointestinal: No abdominal pain, No nausea or vomiting, No diarrhea, No constipation, No blood in stool, No acid reflux, No hemorrhoids, No ulcers, No gallbladder problem and No black,tarry stools Carlito Hematologic: No blood thinners, No blood disorders, No bleeding, No anemia and No blood clots Neuro Neurologic: No numbness and No tingling Exam Const General: cooperative, healthy appearing, comfortable and no acute distress [facility] Head: normocephalic and atraumatic Neck Neck: supple Resp Effort & Inspection: normal respiratory effort Cardio Rate: regular rate GI Inspection: non-distended Palpation: soft and nontender Skin General: no rashes or lesions noted Neuro General: CN's II-XI intact bilaterally Extrem General: normal to inspection Psych Mental Status: mental status grossly normal Attitude: cooperative Assessment and Plan Assessment and Plan (1) Hx of colonic polyp: Status: Acute Plan I have discussed the above with the patient. I have offered the patient colonoscopy for evaluation. I have explained the risks/benefits of the procedure and described the procedure. I have discussed the risks with the patient, including but not limited to: infection, bleeding, perforation of the GI tract requiring emergency surgery, inability to complete the procedure, injury to any internal organs, complications of anesthesia, etc. - the patient understands and agrees to proceed. I have answered all the patient's questions to the patient's satisfaction and the patient has no further questions. The patient has been given instructions for the colon cleansing preparation. 1 day of clears, MiraLAX Dulcolax split prep. Rose Emanuel M.D. Pager: [phone] [facility] [address] [place] [address], [facility], [address] [place] [address] Office: [phone] Coding Level of Care Code Off vis,new,level 3 Diagnoses Hx of colonic polyp Z86.010 05/19/23 1123 <Electronically signed by Rose Emanuel MD> Date Rose Emanuel MD
--- NOTE | 2023-06-08 07:30 | COLBX_PTH ---
PATHOLOGY RESULTS PATIENT: NAJMA WANG Jr. LOC: EN U#:[id number] AGE/SX: 63/M ROOM: RE06/08/[address]: Dr. Rose Emanuel MD : 1960 BED: DIS: 06/08/2023 SPEC #: [id number] RECD: 06/08/23 12:44 STATUS: CHRIS STEPHANIE #: [id number] GIDEON: 06/08/23 07:[address]: Rose Emanuel DEPT: SURGICAL PATHOLOGY RECD BY: Jessica Torres ENTERED: 06/08/23 12:44 SP TYPE: COLON BX OTHR DR: Dr. Anabelle Hamilton MD Tissues: Descending colon Descending colon Procedures: Surgery Specimen Level IV HEADER OPERATION: Colonoscopy, polypectomy, biopsies PRE-OP DIAGNOSIS: History of colonic polyp TISSUE SUBMITTED: A - Descending colon polyp, B - Descending colon polyp biopsy MICROSCOPIC DIAGNOSIS A. Descending colon polyp, biopsy: Tubular adenoma. B. Descending colon polyp, biopsy: Tubular adenoma. AM:edmund 06/09/2023 MICROSCOPIC DESCRIPTION Slides are reviewed. GROSS DESCRIPTION A - Received in fixative is one container labeled with the patient's name and designated descending colon polyp. The specimen consists of a bae-pink polyp measuring 0.8 x 0.3 x 0.2 cm. The specimen is totally submitted in one cassette. B - Received in fixative is one container labeled with the patient's name and designated descending colon polyp biopsy. The specimen consists of one irregular fragment of light bae soft tissue that measures 0.3 x 0.3 x 0.1 cm. The specimen is totally submitted in one cassette. / SJ:edmund 06/08/2023 TC:5 CPT: 47279 x2
[2023-06-08 08:08] VITALS: BP 111/83; BP 98/81; PULSE 63; RESP 16; TEMP 36.2; O2SAT 91
[2023-06-08 08:10] VITALS: BP 111/83; BP 94/70; PULSE 65; RESP 16; O2SAT 91
--- NOTE | 2023-06-08 08:10 | OP.CCLET_ITS ---
06/08/2023 Anabelle Hamilton Md Re : Colonoscopy procedure for Adrian Ramirez Dear Alfonso This procedure was performed on Thursday, June 08, 2023. My impressions and recommendations are as follows: Impressions : - One less than 5 mm polyp in the descending colon, removed with a cold biopsy forceps. Resected and retrieved. - One 4 mm polyp in the descending colon, removed with a hot snare. Resected and retrieved. - The examination was otherwise normal on direct and retroflexion views. Recommendations : - Discharge patient to home. - Resume previous diet. - Continue present medications. - Await pathology results. - Repeat colonoscopy in 5 years for surveillance based on pathology results. My findings are described in the full procedure note, which is enclosed. If I can be of further assistance, please feel free to contact me at Doctor phone number(s): , Work: . Sincerely, MD Rose Hdz MD 06/08/2023 8:09:03 AM This report has been signed electronically.
--- NOTE | 2023-06-08 08:10 | OP.COLON_ITS ---
Patient Name: Adrian Ramirez Procedure Date: 06/08/2023 7:25 AM Date of : 1960 Age: 63 Procedure: Colonoscopy Indications: High risk colon cancer surveillance: Personal history of colonic polyps Providers: Rose Emanuel MD Medicines: Monitored Anesthesia Care Patient Profile: This is a 63 year old male. Last Colonoscopy: 2015. Complications: No immediate complications. Procedure: Pre-Anesthesia Assessment: - Prior to the procedure, a History and Physical was performed, and patient medications and allergies were reviewed. The patient's tolerance of previous anesthesia was also reviewed. The risks and benefits of the procedure and the sedation options and risks were discussed with the patient. All questions were answered, and informed consent was obtained. Prior Anticoagulants: The patient has taken no anticoagulant or antiplatelet agents. ASA Grade Assessment: Per anesthesia. After reviewing the risks and benefits, the patient was deemed in satisfactory condition to undergo the procedure. After I obtained informed consent, the scope was passed under direct vision. Throughout the procedure, the patient's blood pressure, pulse, and oxygen saturations were monitored continuously. The Colonoscope was introduced through the anus and advanced to the cecum, identified by the appendiceal orifice, ileocecal valve and palpation. The colonoscopy was performed without difficulty. The patient tolerated the procedure well. The quality of the bowel preparation was good. Scope In: 7:36:44 AM Scope Withdrawal Time 0 hours 16 minutes 14 seconds Scope Out: 8:02:30 AM Total Procedure Duration Time 0 hours 25 minutes 46 seconds Findings: The perianal and digital rectal examinations were normal. A less than 5 mm polyp was found in the descending colon. The polyp was sessile. The polyp was removed with a cold biopsy forceps. Resection and retrieval were complete. A 4 mm polyp was found in the descending colon. The polyp was semi-pedunculated. The polyp was removed with a hot snare. Resection and retrieval were complete. The exam was otherwise without abnormality on direct and retroflexion views. Impression: - One less than 5 mm polyp in the descending colon, removed with a cold biopsy forceps. Resected and retrieved. - One 4 mm polyp in the descending colon, removed with a hot snare. Resected and retrieved. - The examination was otherwise normal on direct and retroflexion views. Recommendation: - Discharge patient to home. - Resume previous diet. - Continue present medications. - Await pathology results. - Repeat colonoscopy in 5 years for surveillance based on pathology results. Procedure Code(s): --- Professional --- 40048, PT, Colonoscopy, flexible; with removal of tumor(s), polyp(s), or other lesion(s) by snare technique 32490, 59, Colonoscopy, flexible; with biopsy, single or multiple Diagnosis Code(s): --- Professional --- Z86.010, Personal history of colonic polyps D12.4, Benign neoplasm of descending colon CPT copyright 2021 [employer]. All rights reserved. The codes documented in this report are preliminary and upon fuse assembler review may be revised to meet current compliance requirements. MD Rose Hdz MD 06/08/2023 8:09:03 AM This report has been signed electronically. Number of Addenda: 0 Note Initiated On: 06/08/2023 7:25 AM
[2023-06-08 08:15] VITALS: BP 111/83; BP 96/76; PULSE 62; RESP 16; O2SAT 91
[2023-06-08 08:20] VITALS: BP 111/83; BP 97/66; PULSE 57; RESP 16; TEMP 36.3; O2SAT 97
[2023-06-08 08:33] VITALS: BP 111/83
== END 2023-06-08 08:41 | disposition home or self-care (01) ==
LOC: EN 06:00 → AC 06:43
PROVIDERS: PCP General Practice; Referring Provider General Practice; Visit Provider Surgery
PROC: 0DJD8ZZ Inspection of Lower Intestinal Tract, Via Natural or Artificial Opening Endoscopic (ICD-10-PCS; CPT 45378; principal; 2023-06-08 07:25)
DX: Z12.11 Encounter for screening for malignant neoplasm of colon (principal); D12.4 Benign neoplasm of descending colon; F32.A Depression, unspecified; Z79.899 Other long term (current) drug therapy; Z86.010 Personal history of colon polyps; Z87.891 Personal history of nicotine dependence
CPT/HCPCS: 45380; 45385; 88305

== ENCOUNTER 2023-11-10 21:27 | Emergency (ER) | payer OTHER, SELFPAY ==
[2023-11-10 21:27] VITALS: PULSE 50; RESP 18; TEMP 36.3; O2SAT 100
--- NOTE | 2023-11-10 22:04 | CT_ITS ---
STUDY: CT ABDOMEN AND PELVIS WITHOUT CONTRAST REASON FOR EXAM: Male, 63 years old. Right flank pain RADIATION DOSAGE (If Supplied By Facility): CTDIvol = ( 11.36 ) mGy, DLP = ( 587.47 ) mGycm TECHNIQUE: Transaxial images were obtained from the dome of the diaphragm to the symphysis pubis without oral contrast, and without intravenous contrast. Sagittal and coronal images were reconstructed. Individualized dose optimization techniques were used for this CT. COMPARISON: None. FINDINGS: The visualized lung bases are unremarkable. The visualized portions of the heart are within normal limits. Normal liver. Normal gallbladder and extrahepatic biliary system. Normal spleen. There are pancreatic calcifications in the distribution of the ducts consistent with chronic pancreatitis. Normal bilateral adrenal glands. There are at least 5 stones of the right kidney measuring 0.1 and 0.2 cm. There is mild right hydronephrosis with perinephric stranding. There are at least 4 stones of the left kidney measuring 0.2 to 0.4 cm. Normal visualized stomach. Normal small intestine. Normal colon. The appendix is visualized and appears normal. There is mild atherosclerotic calcification of the abdominal aorta, without a demonstrated aneurysm. Normal inferior vena cava. Normal retroperitoneum. There is 0.3 cm on the right side of the urinary bladder adjacent to the ureterovesical junction. Normal abdominal wall. Degenerative change of the spine. CT/Abdomen/Pelvis without Cont IMPRESSION: Bilateral renal stones. Stone in the bladder adjacent to the right ureterovesical junction. Right hydronephrosis with perinephric stranding. Electronically Signed: Dakota Elias MD at 22:50 EDT ,
[2023-11-10] MEDS: Ketorolac 30 MG/ML Syringe IV (22:17)
[2023-11-10] MEDS: 0.9% Normal Saline (1000mL) 1,000 ML 999 ML IV (22:17)
[2023-11-10 22:23] LABS: Mucous, Urine 0 SEEN /hpf (<or=2+); Squamous Epithelial Cells - UA 0 SEEN /hpf (0-5)
[2023-11-10 22:25] LABS: Absolute Lymphocyte Count 2.74 X10^3/uL (0.83-4.51); Absolute Neutrophil Count 4.6 X10^3/uL (2.0-7.7); Basophil# 0.05 X10^3/uL; Basophil% 0.6 % (0-1); Eosinophil# 0.14 X10^3/uL; Eosinophils% 1.7 % (0-5); Hematocrit 47.3 % (40-54); Lymphocyte # 2.74 X10^3/ul (0.83-4.51); Lymphocyte % 32.7 % (19-41); Mean Corp Hgb Conc 33.8 g/dL (32-36); Mean Corpuscular Hgb 30.2 pg (27.0-32.0); Mean Corpuscular Volume 89.4 fL (80-94); Mean Platelet Vol. 10.8 fl (6.2-12.0); Monocyte# 0.86 X10^3/uL; Monocyte% 10.3 % (0-10); NRBC Flagged by Analyzer 0 % (0-5); Neutrophil # 4.55 X10^3/uL (2.7-7.7); Neutrophil % 54.3 % (47-70); Platelet Count 174 K/mm3 (150-450); RBC Distribution Width CV 13.3 % (11.6-14.6); RBC Distribution Width SD 43.9 fl (35.1-43.9); Red Blood Count 5.29 M/mm3 (4.6-6.2); White Blood Count 8.4 K/mm3 (4.4-11.0)
[2023-11-10 22:26] LABS: Color, Urine Yellow (Yellow); Glucose, Dipstick Normal (Normal); Ketone-Dipstick Negative (Negative); Leukocyte Esterase-Dipstick 25 /ul (Negative); Nitrite-Dipstick Negative (Negative); Occult Blood-Urine Negative /ul (Negative); Protein-Dipstick 15 mg/dl (Negative); Specific Gravity, Urine 1.025 (1.002-1.030); Urine Bilirubin Dipstick Negative (Negative); Urine Clarity Sl. Cloudy (Clear); Urine Urobilinogen Normal (Normal)
[2023-11-10 22:44] LABS: White Blood Cells 0-5 SEEN /hpf (0-5)
[2023-11-10 22:45] LABS: Amorphous Sediment 2+; Bacteria RARE /hpf (None Seen); Red Blood Cells-Urine 0-5 SEEN /hpf (0-5)
[2023-11-10 23:06] LABS: Anion Gap 8 (5-15); BUN 22 mg/dL (7-18); BUN/Creat Ratio 16.4 RATIO (10-20); Chloride 104 mmol/L (98-107); Creatinine, Serum 1.34 mg/dL (0.70-1.30); EST Glomerular Filtration Rate 58 mL/min (>60); Est Glom Filt Rate - Afr Amer 70 mL/min (>60); Glucose 147 mg/dL (74-106); Potassium 3.7 mmol/L (3.5-5.1); Sodium Level 140 mmol/L (136-145)
--- NOTE | 2023-11-10 23:17 | EDS_ITS ---
HPI History of Present Illness Chief Complaint: Abd Pain Informant: patient Narrative Narrative: Patient is a 63-year-old male with past medical history of hyperlipidemia GERD and previous kidney stone. He states he awoke this morning and felt he had to have a bowel movement. A few hours later he noticed sharp pain in his right back/flank. He states there was no trauma or excessive activity. He denies any dysuria or hematuria. He denies any loss of bowel or bladder control or IV drug use. He states that as the day progressed the pain worsened and secondary to this he presents for evaluation. [facility] Medical History (Updated 11/10/23 @ 23:[address] Ja Dietz, DO) Wears glasses Depression Injury of head and neck Former smoker History of stress test Pneumonia Neuropathy Irritable bowel syndrome (IBS) Migraines Chronic bronchitis Arthritis History of posttraumatic stress disorder (PTSD) Urticaria, unspecified Tinea versicolor Other psychoactive substance abuse, in remission Shortness of breath Restless legs syndrome Palpitations Irregular heart beats Cardiac arrhythmia, unspecified Insomnia, unspecified Hyperlipidemia, unspecified GERD (gastroesophageal reflux disease) Coccydynia Chronic low back pain Cervicalgia Bradycardia Home Medications ?Medication ?Instructions ?Recorded ?Last Taken ?Type sertraline 100 mg tablet (Zoloft) 200 mg PO DAILY 08/19/21 06/07/23 History zolpidem 10 mg tablet (Ambien) 10 mg PO QHS PRN sleep 08/19/21 06/07/23 History cholecalciferol (vitamin D3) 50 50 mcg PO DAILY #30 caps 04/01/22 06/07/23 Rx mcg (2,000 unit) capsule zinc gluconate 50 mg tablet 50 mg PO DAILY 05/18/23 06/07/23 History cephalexin 500 mg capsule 500 mg PO BID 7 days #14 caps 11/10/23 Unknown Rx ketorolac 10 mg tablet 10 mg PO 4X/DAY PRN pain 5 days 11/10/23 Unknown Rx #20 tabs ondansetron 4 mg disintegrating 4 mg PO TID PRN nausea and 11/10/23 Unknown Rx tablet vomiting #21 tabs oxycodone-acetaminophen 5 mg-325 1 tab PO Q6H PRN pain 3 days #12 11/10/23 Unknown Rx mg tablet (Percocet) tabs tamsulosin 0.4 mg capsule (Flomax) 0.4 mg PO DAILY 14 days #14 caps 11/10/23 Unknown Rx Allergy/AdvReac Type Severity Reaction Status Date / Time bupropion (From Wellbutrin) Allergy Severe Anaphylaxis Verified 11/10/23 21:27 Family History Mother Cardiac disorder Diabetes Father Malignant neoplasm of prostate Surgical History Hx of fusion of cervical spine History of tonsillectomy History of shoulder surgery History of lobectomy of lung History of knee surgery History of foot surgery History of elbow surgery Social History Smoking Status: Former smoker Tobacco: How many years used: 30 second hand exposure: Yes details: occasionally substance use type: former substance user and painkillers what type of physical activity do you participate in: none and other details: 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 renetta/samaritan: Catholic seatbelt use: always ROS ROS ED Constitutional Constitutional ED: Denies chills or fever(s) ENT ENT ED: Denies sore throat Cardiovascular Cardiovascular: Denies chest pain Respiratory/Chest Respiratory/Chest: Denies cough or dyspnea Gastrointestinal Gastrointestinal: Reports abdominal pain and constipation; Denies diarrhea, nausea or vomiting Genitourinary Genitourinary ED: Denies dysuria or hematuria Musculoskeletal Musculoskeletal: Reports back pain; Denies myalgias Integumentary Denies rash Neurologic Neurologic: Denies headache(s) Hematologic/Lymphatic Hematologic/Lymphatic: Denies easy bleeding or easy bruising EXAM Physical Exam Const Vital Signs: 11/10/23 21:27 Temperature 97.3 F L Temperature Source Temporal Pulse Rate 50 L Respiratory Rate 18 Pulse Ox 100 Oxygen Delivery Method Room Air Positive well nourished and well developed General Appearance ED: well developed; Negative for pallor HEENT HEENT Narrative: Normocephalic atraumatic Eyes PERRL and EOMs intact bilaterally General Eye ED: Negative for pale conjunctiva or scleral icterus Neck supple Resp normal respiratory effort and clear to auscultation bilaterally Cardio regular rhythm Rate: bradycardia GI normal to inspection, nondistended, normoactive bowel sounds, non-tender, non- distended and no masses GI Narrative: No voluntary guarding or rigidity or pulsatile mass Auscultation: normoactive bowel sounds Palpation: soft Back/Spine Back/Spine Narrative: Positive right CVA pain noted Extremity normal to inspection Neuro oriented x3, CN's II-XII intact bilaterally and no sensory deficits noted Sensorium / Orientation: alert Motor Exam: strength 5/5 throughout Psych mental status grossly normal Skin no rashes or lesions noted Skin Narrative: No overlying soft tissue changes to suggest trauma or infection General Skin Exam: Negative for jaundice or pallor MDM MDM MDM Narrative Medical decision making narrative: Patient arrived to ER with stable vitals. He denied any recent trauma or excessive activity he also denied any loss of bowel bladder control or IV drug use. Therefore I have low concern for compression fracture or spinal thesis nor do I have high concern for cauda equina or epidural abscess. With spontaneous onset of pain that is sharp in nature in the right flank this is most likely kidney stone and therefore basic labs and a CT scan were obtained. Lab work showed no sign of acute kidney injury or severe electrolyte abnormality nor does he have urosepsis. CT scan confirmed kidney stone on the right side. However pain has been controlled with Toradol. Therefore at this time as he does not have RD or urosepsis and pain has improved with treatment in the ER there is no need for admission and he is otherwise safe for discharge and can follow-up with urology on an outpatient basis. History & Record Review Discussion w/independent historian: Patient Lab Data Attestation: I reviewed the patient's lab results. Labs: Laboratory Results - last 24 hr 11/10/23 11/10/23 21:40 22:13 WBC 8.4 RBC 5.29 Hgb 16.0 Hct 47.3 MCV 89.4 MCH 30.2 MCHC 33.8 RDW Std Deviation 43.9 RDW Coeff of Anaid 13.3 Plt Count 174 MPV 10.8 Immature Gran % (Auto) 0.400 Neut % (Auto) 54.3 Lymph % (Auto) 32.7 [place] % (Auto) 10.3 H Eos % (Auto) 1.7 Baso % (Auto) 0.6 Absolute Neuts (auto) 4.6 Absolute Lymphs (auto) 2.74 Nucleated RBC % 0 Sodium 140 Potassium 3.7 Chloride 104 Carbon Dioxide 28.0 Anion Gap 8 BUN 22 H Creatinine 1.34 H Est GFR (MDRD) Af Amer 70 Est GFR (MDRD) Non-Af 58 L BUN/Creatinine Ratio 16.4 Glucose 147 H Calcium 10.0 Urine Color Yellow Urine Clarity Sl. Cloudy Urine pH 6.0 Ur Specific [place] 1.025 Urine Protein 15 H Urine Glucose (UA) Normal Urine Ketones Negative Urine Occult Blood Negative Urine Nitrite Negative Urine Bilirubin Negative Urine Urobilinogen Normal Ur Leukocyte Esterase 25 H Urine RBC 0-5 SEEN Urine WBC 0-5 SEEN Ur Squamous Epith Cells 0 SEEN Amorphous Sediment 2+ Urine Bacteria RARE Urine Mucus 0 SEEN Radiography Diagnostic Testing: Clinical Impression(s) from Imaging Studies Abdomen/Pelvis CT 11/10/23 22:04 IMPRESSION: Bilateral renal stones. Stone in the bladder adjacent to the right ureterovesical junction. Right hydronephrosis with perinephric stranding. Electronically Signed: Dakota Elias MD at 22:50 EDT , Discharge Plan Triage Chief Complaint: Abd Pain ED Provider: Ja Dietz Dx/Rx/DC Orders Clinical Impression: Kidney stone, Renal colic, GERD (gastroesophageal reflux disease) Instructions: ED Kidney Stone with Pain Prescriptions: New ketorolac 10 mg tablet 10 mg PO 4X/DAY PRN (Reason: pain) 5 Days Qty: 20 0RF tamsulosin [Flomax] 0.4 mg capsule 0.4 mg PO DAILY 14 Days Qty: 14 0RF ondansetron 4 mg tablet,disintegrating 4 mg PO TID PRN (Reason: nausea and vomiting) Qty: 21 0RF oxycodone-acetaminophen [Percocet] 5-325 mg tablet 1 tab PO Q6H PRN (Reason: pain) 3 Days Qty: 12 0RF cephalexin 500 mg capsule 500 mg PO BID 7 Days Qty: 14 0RF No Action zolpidem [Ambien] 10 mg tablet 10 mg PO QHS PRN (Reason: sleep) sertraline [Zoloft] 100 mg tablet 200 mg PO DAILY cholecalciferol (vitamin D3) 50 mcg (2,000 unit) capsule 50 mcg PO DAILY Qty: 30 0RF zinc gluconate 50 mg tablet 50 mg PO DAILY Primary Care Provider: Anabelle Hamilton Referrals: Anabelle Hamilton MD [Primary Care Provider] - Tez Suarez MD [Med Staff - Active Staff] - Activity Restrictions/Additional Instructions: Take the prophylactic antibiotic to help prevent infection. Follow-up with urology for repeat evaluation and if you develop a fever over 100.4 or have intractable pain please return to the ER. Print Language: Danish Disposition Disposition: Home, Self Care
[2023-11-10 23:27] VITALS: BP 118/67; PULSE 89; RESP 16; O2SAT 99
[2023-11-10 23:33] VITALS: BP 133/80; PULSE 75; RESP 16; TEMP 36.9; O2SAT 99
[2023-11-10] MEDS: oxyCODONE 5 MG Tablet 10 MG PO (23:38)
== END 2023-11-10 23:38 | disposition home or self-care (01) ==
PROVIDERS: Emergency Provider Emergency Medicine; PCP General Practice; Visit Provider Emergency Medicine
DX: N13.2 Hydronephrosis with renal and ureteral calculous obstruction (principal); K21.9 Gastro-esophageal reflux disease without esophagitis; Z87.891 Personal history of nicotine dependence
CPT/HCPCS: 74176; 80048; 81001; 85025; 96361; 96374; 96376; 99283; J7030; A4216